=== PATIENT | female | born 1940 | race Caucasian/White ===

== ENCOUNTER 2022-05-11 15:26 | Emergency (ER) | payer MEDICARE, OTHER ==
[~2022-05-11] VITALS: Ht 160 cm; Wt 59.0 kg
[2022-05-11] MEDS ORDERED: NEOMY/BACITRA/POLYMYXIN B OINT UD PACKET TP ONE ×2 (16:15→16:19)
[2022-05-11] MEDS ORDERED: TDAP DIPH,PERTUSS,TET VAC/PF 0.5 ML DISP.SYRIN IM ONE ×2 (16:15→16:19)
--- NOTE | 2022-05-11 16:53 | NUR ---
Patient discharged to home in stable condition. Written and verbal after care instructions given. Patient verbalizes understanding of instructions. Stressed follow up or return to ER for worsening s/s.
[2022-05-11 16:54] VITALS: BP 141/75
== END 2022-05-11 16:56 | disposition home or self-care (01) ==
LOC: ER 15:26
DX: S60.571A Other superficial bite of hand of right hand, initial encounter (principal); W54.0XXA Bitten by dog, initial encounter; Y92.89 Other specified places as the place of occurrence of the external cause
CPT/HCPCS: 90715; A4663

== ENCOUNTER 2022-12-03 19:43 | Emergency (ER) | payer MEDICARE, OTHER ==
[~2022-12-03] VITALS: Ht 160 cm; Wt 64.8 kg
--- NOTE | 2022-12-03 19:56 | NUR ---
Patient arrived at the ER with c/o sudden onset of dizziness that started about 30mins [employer].
--- NOTE | 2022-12-03 20:08 | NUR ---
Dr. Cabello at bedside for MSE.
[2022-12-03] MEDS ORDERED: ONDANSETRON 4 MG/2 ML VIAL ONE (20:13)
[2022-12-03] MEDS ORDERED: IV NORMAL SALINE 500 ML BAG IV ONE (20:15)
[2022-12-03] MEDS ORDERED: ONDANSETRON 4 MG/2 ML VIAL IV ONE (20:15)
[2022-12-03 20:30] LABS: HEMATOCRIT 45.6 % (31.2-41.9); MEAN CORPUSCULAR HEMOGLOBIN 30.6 uug (24.7-32.8); MEAN CORPUSCULAR VOLUME 92.4 fL (75.5-95.3); PLATELET COUNT (AUTO) 236 K/uL (179-408)
[2022-12-03] MEDS ORDERED: HYDR12.55 PO (20:40)
[2022-12-03] MEDS ORDERED: GEMTESA PO (20:40)
[2022-12-03] MEDS ORDERED: AMLO2.5T4 PO (20:40)
[2022-12-03] MEDS ORDERED: ROSU5TAB PO (20:40)
[2022-12-03] MEDS ORDERED: METO-357 PO (20:40)
[2022-12-03] MEDS ORDERED: TELM80TA2 PO (20:40)
[2022-12-03 20:49] LABS: ALANINE AMINOTRANSFERASE 29 U/L (14-59); ALKALINE PHOSPHATASE 113 U/L (50-136); ASPARTATE AMINOTRANSFERASE 20 U/L (15-37); BILIRUBIN,DIRECT 0.1 mg/dL (0.0-0.2); BILIRUBIN,TOTAL 0.4 mg/dL (0.2-1.0); CARBON DIOXIDE 29 mmol/L (21-32); CHLORIDE 100 mmol/L (98-107); CREATININE 0.8 mg/dL (0.6-1.3); GLUCOSE 110 mg/dL (74-106); POTASSIUM 3.4 mmol/L (3.5-5.1); TOTAL PROTEIN, SERUM 7.4 g/dL (6.4-8.2); UREA NITROGEN, BLOOD 16 mg/dL (7-18)
--- NOTE | 2022-12-03 21:46 | NUR ---
Assisted patient to toilet to urinate.
--- NOTE | 2022-12-03 22:06 | NUR ---
Dr. Cabello at bedside
--- NOTE | 2022-12-03 23:10 | NUR ---
Patient discharged to home in stable condition. Written and verbal after care instructions given. Patient verbalizes understanding of instructions. Stressed follow up or return to ER for worsening s/s. Patient ambulated out of the ER with steady gait. All belongings with patient.
[2022-12-03 23:12] VITALS: BP 149/63
== END 2022-12-03 23:13 | disposition home or self-care (01) ==
LOC: ER 19:43
DX: R42 Dizziness and giddiness (principal); R94.31 Abnormal electrocardiogram [ECG] [EKG]; I10 Essential (primary) hypertension; E78.5 Hyperlipidemia, unspecified; R07.89 Other chest pain; Z90.710 Acquired absence of both cervix and uterus; Z79.899 Other long term (current) drug therapy
CPT/HCPCS: 99285; 96374; 71045; 80076; 80048; 83735; 85025; 84484 ×2; 36415; 93005 ×2; J2405; J7040; A4663